=== PATIENT | male | born 1980 | race Caucasian/White ===

== ENCOUNTER 2018-04-13 14:51 | Emergency (ER) | payer MEDICAID ==
[~2018-04-13] VITALS: Ht 170.2 cm; Wt 83.9 kg
[~2018-04-13 14:51] MED LIST: AMIT PO; ATOR10TA PO; CLOP75TA41 PO; ERGO1CAP23 PO; FAM20T PO; GABA-339 PO; GABA300C10 PO; KEP500T PO; METO25TA62 PO; NAPR500T31 PO; ROPI1TAB PO; ZONI100C43 PO
[2018-04-13] MEDS ORDERED: SODIUM CHLORIDE 0.9% 1,000 ML IV ONE ×2 (15:05)
[2018-04-13] MEDS ORDERED: ONDANSETRON HCL 4 MG/2 ML VIAL IV ONE (15:15)
[2018-04-13] MEDS ORDERED: LEVETIRACETAM INJ 1,000 MG in D5W 5% 100 ML IV ONE (15:15)
[2018-04-13 15:26] VITALS: BP 113/56
[2018-04-13 16:21] LABS: Basophils # (auto) 0 uL; Basophils % (auto) 0.3 % (0.0-2.0); Eosinophils # (auto) 0 uL; Eosinophils % (auto) 0.1 % (0.0-7.0); Hematocrit 45.4 % (41.0-53.0); Hemoglobin 15.6 g/dL (13.5-17.5); Lymphocytes # (auto) 0.7 uL; Lymphocytes % (auto) 10.2 % (10.0-50.0); Mean Corpuscular Hemoglobin 31.6 pg (28.0-32.0); Mean Corpuscular Hgb Conc. 34.3 g/dL (32.0-36.0); Mean Corpuscular Volume 92.1 fL (80.0-100.0); Monocytes # (auto) 0.4 uL; Monocytes % (auto) 5.9 % (0.0-12.0); Neutrophils # (auto) 5.7 uL; Neutrophils % (auto) 83.5 % (37.0-80.0); Nucleated Red Blood Cells % 0.2 %; Platelet Count (auto) 197 10^3/uL (140-450); Red Blood Cells 4.93 10^6/uL (4.5-5.90); Red Cell Distribution Width 14.6 % (11.8-14.3); White Blood Cell 6.8 10^3/uL (4.4-10.8)
[2018-04-13 16:29] LABS: Albumin 4.3 g/dL (3.4-5.0); BUN/Creatinine Ratio 18.3; Bilirubin, Total 1.2 mg/dL (0.2-1.0); Calcium 8.7 mg/dL (8.5-10.1); Potassium 4.1 mmol/L (3.5-5.1); Total Protein 7.3 g/dL (6.4-8.2)
== END 2018-04-13 17:20 | disposition home or self-care (01) ==
LOC: EDBD 14:51 → ER 14:53
DX: G40.909 Epilepsy, unspecified, not intractable, without status epilepticus (principal); H54.7 Unspecified visual loss; E78.5 Hyperlipidemia, unspecified; I10 Essential (primary) hypertension; Z86.73 Personal history of transient ischemic attack (TIA), and cerebral infarction without residual deficits
CPT/HCPCS: 36415; 70450; 80053; 85025; 94761; 96365; 96375; 99285; J1953; J2405; J7060